=== PATIENT | male | born 1955 | race Caucasian/White ===

== ENCOUNTER 2017-09-06 09:11 | Outpatient (CLI) | payer OTHER ==
--- NOTE | 2017-09-06 12:31 | MRI ---
BRAIN MRI WITH AND WITHOUT CONTRAST: INDICATIONS: Intracranial hemorrhage. History of possible stroke, confusion, and slurred speech. COMPARISON: There are no prior comparisons available. FINDINGS: There is an abnormal focus of increased T1 and T2 signal within the left parietal lobe, centered at the subcortical and deep white matter, most consistent with a subacute hemorrhagic nidus, containing extracellular methemoglobin and a hemosiderin rim. There is surrounding multifocal punctate suscep tibility. There is mild prominence of the ventricular system. There is limited evaluation for pote ntial underlying enhancement of the hemorrhagic nidus due to intrinsic T1 hyperintensity from hemorr rashard. There is no acute territorial infarction and no midline shift. IMPRESSION: Subacute hemorrhagic focus of the left parietal lobe with surrounding multifocal susceptibility. Th ere is intrinsic T1 hyperintensity, which precludes reliable assessment for an underlying mass as th e cause for hemorrhage Recommend followup, upon resolution of hemorrhage, to exclude the possibility of an underlying lesio n. Multifocal punctate susceptibility may be on the basis of amyloid angiopathy. Telephone call of findings and recommendations placed to Dr. Linton. POS: JANINE
== END 2017-09-06 09:12 | disposition home or self-care (01) ==
LOC: TBSIIMAG 09:11
PROVIDERS: ATTEND Neurological Surgery
DX: I62.9 Nontraumatic intracranial hemorrhage, unspecified (principal)
CPT/HCPCS: 70553